=== PATIENT | male | born 1995 | race Caucasian/White ===

== ENCOUNTER 2018-04-30 14:46 | Emergency (ER) | payer SELFPAY ==
[2018-04-30 14:50] VITALS: BP 150/72
--- NOTE | 2018-04-30 15:05 | EDPHY ---
H & P Stated Complaint: Got really drunk last night; states vomited and thought vomit looked dark Time Seen by Provider: 04/30/18 15:04 - Personal History Current Tetanus Diphtheria and Acellular Pertussis (TDAP): Yes - Medical/Surgical History Other PMH: acid reflux - Social History Smoking Status: Current some day smoker Constitutional: Initial Vital Signs Temperature (C) 36.6 C 04/30/18 14:47 Heart Rate 88 04/30/18 14:47 Respiratory Rate 16 04/30/18 14:47 Blood Pressure 150/72 H 04/30/18 14:47 O2 Sat (%) 97 04/30/18 14:47 O2 Delivery Mode Room Air Allergies/Adverse Reactions: No Known Allergies Allergy (Unverified 04/30/18 14:50) Home Medications: Medication Instructions Recorded Pantoprazole Sodium [Protonix] 40 mg PO DAILY #10 tablet. 04/30/18 Ranitidine HCl [Zantac] 150 mg PO 04/30/18 Medical Decision Making ED Course/Re-evaluation: CHIEF COMPLAINT: Vomiting dark material HISTORY OF PRESENT ILLNESS: Healthy 23-year-old gentleman who got extremely intoxicated last night and then vomited several times. He denies any pain in his chest abdomen or esophageal region however states that toward the end of his vomiting episodes he noticed there was some very dark may be coffee-ground like may be black particles. He does not correlate with any thing he ate. He does have acid reflux and he takes Zantac a few times a week. He denies any other symptoms at this time. This never happened to him before. REVIEW OF SYSTEMS: A 10 point review of systems was performed and is negative with the exception of the elements mentioned in the history of present illness. PHYSICAL EXAM: HR, BP, O2 Sat, RR. Temp noted General Appearance: Alert, well hydrated, appropriate, and non-toxic appearing. Head: Atraumatic without scalp tenderness or obvious injury Eyes: Pupils equal, round, reactive to light and accommodation, EOMI, no trauma , no injection. Ears: Clear bilaterally, no perforation, normal landmarks Nose: Atraumatic, no rhinorrhea, clear. Throat: There is no erythema or exudates, no lesions, normal tonsils, mucus membranes moist. Neck: Supple, 2+ carotid upstroke, nontender, no lymphadenopathy. Respiratory: No retractions, no distress, no wheezes, and no accessory muscle use. Lungs are clear to auscultation bilaterally. Cardiovascular: Regular rate and rhythm, no murmurs, rubs, or gallops. Bilateral carotid, radial, dorsalis pedis, and posterior tibial pulses intact. Good capillary refill all extremities. Gastrointestinal: Abdomen is soft, nontender, non-distended, no masses, no rebound, no guarding, no peritoneal signs. Musculoskeletal: Normal active ROM of all extremities, atraumatic. Neurological: Alert, appropriate, and interactive. The patient has normal DTRs and non-focal cranial nerves, motor, sensory, and cerebellar exam. Skin: No rashes, good turgor, no nodules on palpation. Past medical history: Denies except GERD Past surgical history: Noncontributory Family history: Noncontributory Social history: Single, employed, does not abuse tobacco or drugs and does binge drink DIAGNOSTICS/PROCEDURES/CRITICAL CARE TIME: None needed DIFFERENTIAL DIAGNOSIS: The differential diagnosis for the patient's upper GI bleeding included but was not limited to ulcer disease, gastritis, Yina- Diaz tear, and esophageal varices. MEDICAL DECISION MAKING: This patient is stable. He is a benign exam. He noticed some black material or dark material after several vomiting episodes after being significantly intoxicated last night. I will start him on Protonix for the next 10 days. He will continue his Zantac daily. We will follow up with GI of the [facility] of any symptoms persist. He does state he a completely normal bowel movement this morning. Departure - Departure Disposition: Home, Routine, Self-Care Clinical Impression: Acute alcoholic gastritis with hemorrhage Condition: Good Instructions: Gastritis (ED) Referrals: NONE *PRIMARY CARE P,. [Primary Care Provider] - As per Instructions Dipak Rodriguez MD [Medical Doctor] - As per Instructions Prescriptions: Pantoprazole Sodium [Protonix] 40 mg PO DAILY #10 tablet.
[2018-04-30] MEDS ORDERED: PANTOPRAZOLE SODIUM 40 MG TAB PO ONE (15:10)
== END 2018-04-30 15:33 | disposition home or self-care (01) ==
DX: K29.21 Alcoholic gastritis with bleeding (principal); F17.200 Nicotine dependence, unspecified, uncomplicated